=== PATIENT | female | born 1960 | race Caucasian/White ===

== ENCOUNTER 2017-04-03 09:27 | Outpatient (RCR) | payer OTHER ==
[~2017-04-03 09:27] MED LIST: COLA100C5 PO; COUM10TA OR; HEPARIN IV; TYLE325T5 PO; ULTR50TA8 PO; VIST25CA PO; ZOFR40IN IV
--- NOTE | 2017-04-10 06:32 | RADONC ---
RADIATION ONCOLOGY PROGRESS NOTE DATE: 04/08/2017 Ms. Ogden is presently at a dose of 900 cGy to her whole brain and is tolerating treatments quite well at this point with no complaints related to her radiation therapy. She is having no new headaches or other problems. REVIEW OF SYSTEMS: The patient's review of systems is noncontributory. Denies nausea, vomiting, fevers, chills, night sweats, diplopia, headaches, anxiety or depression, anorexia, weight loss, visual disturbances, chest pain, urinary or bowel difficulties, bone pain, or neurological problems. PHYSICAL EXAMINATION: The patient's skin is in good condition with no evidence of radiation change present. There is no moist or dry desquamation. The remainder of her physical exam remains unchanged. Ms. Ogden is tolerating treatments quite well. Radiation will continue as scheduled.
--- NOTE | 2017-04-16 07:58 | RADONC ---
RADIATION ONCOLOGY TREATMENT SUMMARY DATE: 04/15/2017 CHART NUMBER: [id number] DIAGNOSIS: Ovarian cancer. STAGE: Metastatic. TREATMENT SUMMARY: Ms. Ogden is a 56-year-old white female who presented to us for consideration of palliative radiation therapy for recurrent brain metastases. We treated the patient to her whole brain for a dose of 2100 cGy delivered in seven fractions of 300 cGy each over eight elapsed days from 04/04/2017 through 04/12/2017. The patient's brain was treated on the linear accelerator utilizing a 6 MV photon beam via parallel opposed lateral schuler. The patient had been scheduled for a total of 10 fractions of radiation. Unfortunately, we received a phone call today from the patient's mother reporting that she would not be coming in today nor receiving any further radiation. Apparently, her condition continued to deteriorate. I wish we could have been of more benefit to this very pleasant woman. We are available if we can provide any information or be of any assistance whatsoever. We are trying to contact the patient's family to see what is going on at this point with her to see if we can help in any manner whatsoever. I have not at this time set her up for any followup. cc: MD Lan Perdomo MD
--- NOTE | 2017-04-23 07:16 | RADONC ---
RADIATION ONCOLOGY PROGRESS NOTE DATE: 04/22/2017 CHART NUMBER: [id number] Ms. Ogden is presently at a dose of 2400 cGy to her whole brain and has been tolerating her treatments well. She has been off of treatment for approximately 10 days. She was admitted to [facility] for progression of disease while on treatment. I explained to the physicians at her other institution as well as to the patient's family that I am not sure that we will be of any benefit with the additional three fractions. In reality, however, the patient is doing much better at this point and does want her remaining three treatments so radiation has resumed today.
--- NOTE | 2017-04-27 10:08 | RADONC ---
RADIATION ONCOLOGY TREATMENT SUMMARY DATE: 04/24/2017 CHART NUMBER: [id number] DIAGNOSIS: Ovarian cancer. STAGE: Metastatic. TREATMENT SUMMARY: Ms. Ogden is a 56-year-old white female who presented to us for consideration of palliative radiation therapy for recurrent brain metastasis. We treated the patient to her whole brain for a total dose of 3000 cGy delivered in 10 fractions of 300 cGy each over 20 elapsed days from 04/04/2017 through 04/24/2017. The patient's brain was treated on the linear accelerator utilizing a 6 MV photon beam via medial and lateral tangential schuler. We initially treated the patient for 2100 cGy and she subsequently deteriorated and was seen at [facility]. There she was managed and improved somewhat and returned to us for the final three fractions of radiation. I have scheduled the patient to see me again in 1 month for further followup. She will also continue to be followed by her other physicians as well. Thank you for allowing us to participate in the care of this very pleasant woman. If I could be of any further assistance or provide you with any information, please free to contact me at any time. cc: MD Lan Perdomo MD
== END 2017-05-02 ==
LOC: M ONCR 09:27
PROVIDERS: ATTEND Radiology Radiation Oncology
DX: C79.31 Secondary malignant neoplasm of brain (principal); C56.1 Malignant neoplasm of right ovary; C77.2 Secondary and unspecified malignant neoplasm of intra-abdominal lymph nodes

== ENCOUNTER → 2017-05-22 | Outpatient (CLI) | payer OTHER ==
--- NOTE | 2017-05-28 06:49 | RADONC ---
RADIATION ONCOLOGY FOLLOWUP NOTE DATE: 05/22/2017 CHART NUMBER: [id number] DIAGNOSIS: Ovarian cancer. STAGE: Metastatic. FOLLOWUP NOTE: Ms. Ogden is a very pleasant 56-year-old white female with the diagnosis of metastatic ovarian carcinoma who is presenting to us today for routine followup visit 1 month post completion of external beam radiation therapy. The patient presents today reporting that she is doing quite well with no complaints at this time related to her radiation therapy or disease. She continues to have loss of hearing. Otherwise she feels quite well. The patient reports that she is now receiving systemic chemotherapy again. She is doing quite well with that and reports that she is having no problems. REVIEW OF SYSTEMS: The patient's review of systems is positive for hearing loss but is otherwise noncontributory. Denies nausea, vomiting, fevers, chills, night sweats, diplopia, headaches, anxiety or depression, anorexia, weight loss, visual disturbances, chest pain, urinary or bowel difficulties, bone pain, or neurological problems. PHYSICAL EXAMINATION: The patient is a well-developed, well-nourished, 56-year-old female in no acute distress. HEENT exam is normocephalic, atraumatic. Extraocular movements are intact. There is no palpable cervical, supraclavicular, infraclavicular, axillary, or inguinal lymphadenopathy present. Lungs are clear to auscultation and percussion. Heart has a regular rate and rhythm. Abdomen is benign with no hepatosplenomegaly, masses, or tenderness. Skeletal examination reveals no tenderness to pressure or percussion of the bony skeleton. Extremities reveal no clubbing, cyanosis, or edema. Neurologic exam is grossly intact, as is the remainder of the physical examination. ASSESSMENT: The patient is clinically stable at this point. Since she is being followed and managed so closely by her medical oncologist, I have discharged her from our followup except on a p.r.n. basis. cc: MD Lan Perdomo MD MTDD
== END ==
LOC: M ONCR 14:13
PROVIDERS: ATTEND Radiology Radiation Oncology
DX: C56.1 Malignant neoplasm of right ovary (principal); C77.2 Secondary and unspecified malignant neoplasm of intra-abdominal lymph nodes